=== PATIENT | male | born 1950 | race Caucasian/White ===

== ENCOUNTER 2021-11-08 15:04 | Outpatient (CLI) | payer MEDICARE, BC | END 2021-11-08 23:59 | disposition home or self-care (01) | LOC: RAD 15:04 | PROVIDERS: ATTEND Psychiatry & Neurology Neurology | DX: R13.12 Dysphagia, oropharyngeal phase (principal); R47.1 Dysarthria and anarthria; R49.0 Dysphonia; G20 Parkinson's disease | CPT/HCPCS: 74230 ==

== ENCOUNTER 2024-05-24 09:58 | Emergency (ER) | payer MEDICARE, BC ==
[~2024-05-24] VITALS: Ht 190.5 cm; Wt 72.5 kg
[2024-05-24 10:28] VITALS: TEMP 97.8
[2024-05-24] MEDS: LIDOcaine 4% (40 mg/ml) topical solution 50ml TP ONE (11:59)
[2024-05-24 12:55] VITALS: BP 129/83; PULSE 70; RESP 18; O2SAT 97
== END 2024-05-24 13:08 | disposition home or self-care (01) ==
LOC: ER 09:59
DX: S41.112A Laceration without foreign body of left upper arm, initial encounter (principal); F02.80 Dementia in other diseases classified elsewhere, unspecified severity, without behavioral disturbance, psychotic disturbance, mood disturbance, and anxiety; G20.A1 Parkinson's disease without dyskinesia, without mention of fluctuations; W19.XXXA Unspecified fall, initial encounter; Y93.89 Activity, other specified; Y92.89 Other specified places as the place of occurrence of the external cause; Y99.8 Other external cause status
CPT/HCPCS: 71045; 73030; 99284; A6223; A6258; A6402; A6446; A6449; J7030

== ENCOUNTER 2024-08-15 10:28 | Emergency (ER) | payer MEDICARE, BC ==
[~2024-08-15] VITALS: Ht 185.4 cm; Wt 68.2 kg
[~2024-08-15 10:28] MED LIST: ALEN70TA14 PO; ALEN70TA60 PO; CARB1TAB42 PO; CARB1TAB44 PO; DONE10TA19 PO; QUET25TA36 PO; SAFI100T PO; SERT-432 PO
[2024-08-15 10:31] VITALS: TEMP 97.8
--- NOTE | 2024-08-15 10:54 | ELECTROCARDIOGRAPH REPORT ---
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 Richy Tamayo Measurements Intervals [place] Rate: 64 P: 72 KS: 142 QRS: 89 QRSD: 150 T: 54 QT: 417 QTc: 431 Interpretive Statements Sinus rhythm Right bundle branch block Baseline wander in lead(s) V6 Electronically Signed On 08-15-2024 18:47:[address] Richy Tamayo Please click the below link to view image of tracing.
[2024-08-15] MEDS: normal saline 1000ml 1,000 ML IV ONE (11:03)
[2024-08-15] MEDS: CefTRIAXone/D5W-Rocephin 1gm 50 ML IV ONE (11:10)
[2024-08-15 11:30] LABS: BASOPHILS % (AUTO) 0.4 % (0-1); EOSINOPHILS # (AUTO) 0.1 X10'3 (0-0.9); EOSINOPHILS % (AUTO) 0.7 % (0-6); HEMATOCRIT 36.6 % (42.0-52.0); HEMOGLOBIN 12.5 g/dl (14.0-17.9); LYMPHOCYTES # (AUTO) 1.3 X10'3 (1.1-4.8); LYMPHOCYTES % (AUTO) 17.1 % (21-51); MEAN CORPUSCULAR HEMOGLOBIN 31.4 PG (27.0-31.0); MEAN CORPUSCULAR HGB CONC 34.1 g/dL (33.0-36.5); MEAN CORPUSCULAR VOLUME 92.1 FL (78-98); MEAN PLATELET VOLUME 7.3 FL (7.4-10.4); MONOCYTES # (AUTO) 0.5 X10'3 (0-0.9); NEUTROPHILS # (AUTO) 5.5 X10'3 (1.8-7.7); NEUTROPHILS % (AUTO) 74.8 % (42-75); PLATELET COUNT 300 X10'3 (140-440); RED BLOOD COUNT 3.98 X10'6 (4.70-6.10); RED CELL DISTRIBUTION WIDTH 13.3 % (11.5-14.5); WHITE BLOOD COUNT 7.4 X10'3 (4.5-11.0)
[2024-08-15 11:39] LABS: ALANINE AMINOTRANSFERASE 7 U/L (12-78); ALBUMIN/GLOBULIN RATIO 0.8 (1.1-1.5); ALKALINE PHOSPHATASE 279 IU/L (46-116); ANION GAP 7 (8-16); ASPARTATE AMINO TRANSFERASE 25 U/L (10-37); BILIRUBIN,TOTAL 0.5 MG/DL (0.1-1.0); BLOOD UREA NITROGEN 14 MG/DL (7-18); BUN/CREATININE RATIO 15.7 (10.0-20.0); CALCIUM 8.6 MG/DL (8.5-10.1); CHLORIDE 104 MMOL/L (99-107); CREATININE 0.89 MG/DL (0.60-1.10); GLUCOSE 108 MG/DL (70-104); POTASSIUM 3.9 MMOL/L (3.5-5.1); SODIUM 140 MMOL/L (135-145); TOTAL CARBON DIOXIDE 28.7 MMOL/L (24-32); TOTAL PROTEIN 6.9 G/DL (6.4-8.2); eCRCL 73 ML/MIN; eGFR 84 ML/MIN
--- NOTE | 2024-08-15 13:05 | RADIOLOGY REPORT ---
CHEST RADIOGRAPH Indication: altered Technique: Single frontal view of the chest was obtained COMPARISON: DI CHEST,SINGLE VIEW on DOS: 07/03/24, DI CHEST,SINGLE VIEW on DOS: 05/24/24 FINDINGS: Lines and Tubes: None Lungs: Clear Pleura: No effusion. No pneumothorax. Cardiomediastinal contours: Unremarkable Bones: Unremarkable IMPRESSION: 1. No acute disease.
--- NOTE | 2024-08-15 16:38 | Physician Documentation ---
History of Present Illness ~ Chief Complaint: Confused Stated Complaint: POSS UTI Time Seen by MD: 10:45 Primary Medical Doctor: Sylvain Mode of Arrival: POV HPI 73 year old male with history of dementia arrives for increasing altered mental status beyond baseline and concern for UTI. History is obtained by son at bedside. There are no reported fevers, cough, N/V/D, chest pain. Medication Reconciliation Allergies: Coded Allergies: No Known Allergies (Unverified , 08/15/24) Scheduled Alendronate Sodium (Alendronate Sodium), 1 TAB PO Q7D Alendronate Sodium* (Fosamax*), 1 TAB PO Q7D Carbidopa/Levodopa (Carbidopa-Levo ER 50-200 Tab), 2 TAB PO HS, (Reported) Donepezil HCl (Aricept), 1 TAB PO HS, (Reported) Quetiapine Fumarate (Quetiapine Fumarate), 0.5 TAB PO BID, (Reported) Safinamide Mesylate (Xadago), 1 TAB PO HS, (Reported) Sertraline HCl (Sertraline HCl), 1 TAB PO DAILY, (Reported) Miscellaneous Medications Carbidopa/Levodopa (Carbidopa-Levo 25-100 Mg Odt), 1 EACH PO, (Reported) Past Medical History Past Medical History: Dementia, Parkinson's Disease Alcohol Use: Occasionally Drug Use: none Review of Systems All Other Systems at this time: Reviewed and Negative Physical Exam Vital Signs: RN Vital Signs have been reviewed: Yes, Temperature: 97.8, Source: Temporal, Heart Rate: 55, Respiratory Rate: 16, BP: 96/61, Pulse Oximetry: 97, Weight: 68.180 Oxygen Flow Rate: 0 Progress Results/Orders Results/Orders Orders - NHAN ESTRADA MD Urinalysis, Cult If Indicated (08/15/24 10:46) Chest,Single View (08/15/24 12:26) Completed Orders - NHAN ESTRADA MD Cbc/Diff (08/15/24 10:46) CMP (08/15/24 10:46) Electrocardiogram (08/15/24 10:46) Normal Saline 1000ml (Sodium Chloride 10 (08/15/24 10:55) Ceftriaxone/K3t-Mgfczptm 1gm (Rocephin 1 (08/15/24 10:55) Chest,Single View (08/15/24 12:26) Medications Received in ER Medications (Trade) Dose Ordered Sig/Jammie Route PRN Reason Start Time Stop Time Status Last Admin Dose Admin Sodium Chloride 1,000 ml @ 1,000 mls/hr ONCE ONCE IV 08/15/24 10:55 08/15/24 11:54 DC 08/15/24 11:03 1,000 MLS/HR Ceftriaxone Sodium 50 ml @ 100 mls/hr ONCE ONCE IV 08/15/24 10:55 08/15/24 11:24 DC 08/15/24 11:10 100 MLS/HR Vital Signs 08/15/24 08/15/24 08/15/24 08/15/24 10:31 11:17 11:48 13:54 Temp 97.8 Pulse 73 52 62 Resp 16 13 16 B/P (MAP) 128/53 94/58 (70) 129/69 (89) Pulse Ox 95 97 94 O2 Flow Rate 0 0 0 08/15/24 15:41 Pulse 55 Resp 16 B/P (MAP) 96/61 (73) Pulse Ox 97 O2 Flow Rate 0 Laboratory Tests Test 08/15/24 11:01 White Blood Count 7.4 Red Blood Count 3.98 L Hemoglobin 12.5 L Hematocrit 36.6 L Mean Corpuscular Volume 92.1 Mean Corpuscular Hemoglobin 31.4 H Mean Corpuscular Hemoglobin Concent 34.1 Red Cell Distribution Width 13.3 Platelet Count 300 Mean Platelet Volume 7.3 L Neutrophils (%) (Auto) 74.8 Lymphocytes (%) (Auto) 17.1 L Monocytes (%) (Auto) 7.0 Eosinophils (%) (Auto) 0.7 Basophils (%) (Auto) 0.4 Neutrophils # (Auto) 5.5 Lymphocytes # (Auto) 1.3 Monocytes # (Auto) 0.5 Eosinophils # (Auto) 0.1 Basophils # (Auto) 0.0 CBC Comment Sodium Level 140 Potassium Level 3.9 Chloride Level 104 Carbon Dioxide Level 28.7 Anion Gap 7 L Blood Urea Nitrogen 14 Creatinine 0.89 Estimated GFR/1.73 m2 84 BUN/Creatinine Ratio 15.7 Glucose Level 108 H Calcium Level 8.6 Total Bilirubin 0.5 Aspartate Amino Transf (AST/SGOT) 25 Alanine Aminotransferase (ALT/SGPT) 7 L Alkaline Phosphatase 279 H Total Protein 6.9 Albumin 3.0 L Globulin 3.9 Albumin/Globulin Ratio 0.8 L Chemistry Comments Medical Decision Making Findings 73 year old male with increased altered mental status per son. Workup was largely unremarkable. Through various series of events we were unable to obtain a urine from the patient and we elected to treat empirically for a UTI. Offered admission and patient and son refused despite thorough discussion of risks / benefits. Return precautions discussed. Differential Dx:Considerations: Include: dehydration, hypoglycemia, hyponatremia, postictal, encephalopathy, medication toxicity, infection - sepsis, infection - UTI, renal failure, hyperthermia Additional Information Ddx includes UTI Departure Disposition: HOME / SELF CARE / HOMELESS Impression: Primary Impression: Dementia Condition: Stable Discharge Instructions: Dementia Referrals: NO PRIMARY CARE PROVIDER (PCP) Prescriptions Sulfamethoxazole/Trimethoprim (Bactrim Ds Tablet) 800 Mg-160 Mg Tablet 1 TAB PO Q12H for 7 Days, #14 TAB Prov: NHAN ESTRADA MD 08/15/24 Education Educated: Patient, Family Educated regarding: diagnosis, treatment, prognosis, need for follow up Signature Scribe Signature: . Attestation: . NHAN ESTRADA MD Aug 15, 2024 16:38
[2024-08-15] MEDS ORDERED: SULF1TAB49 PO (16:54)
[2024-08-15 17:11] VITALS: BP 100/68; PULSE 68; RESP 16; O2SAT 97
== END 2024-08-15 17:11 | disposition home or self-care (01) ==
LOC: ER 10:29
DX: G20.A1 Parkinson's disease without dyskinesia, without mention of fluctuations (principal); F02.80 Dementia in other diseases classified elsewhere, unspecified severity, without behavioral disturbance, psychotic disturbance, mood disturbance, and anxiety; Z79.899 Other long term (current) drug therapy; Z72.89 Other problems related to lifestyle
CPT/HCPCS: 36415; 71045; 80053; 85025; 93005; 96365; 99285; A6222; A6449; C1758; J0696; J7030